=== PATIENT | female | born 1950 | race Caucasian/White ===

== ENCOUNTER 2016-05-15 23:57 | Emergency (ER) | payer OTHER, MEDICARE ==
[2016-05-16 00:22] VITALS: BP 119/72; PULSE 82; TEMP 97.2; BMI 18.5
--- NOTE | 2016-05-16 00:28 | PDOC ---
History of Present Illness - General Chief Complaint: Chest Pain Stated Complaint: CHEST PAIN Time Seen by Provider: 05/15/16 23:59 - History of Present Illness Initial Comments: 05/16/16 03:16 This 66-year-old woman with past history of pericarditis but no other significant past medical history presents with one day of anterior chest pain. Patient states that this pain is very similar to her previous pericarditis pain(worse sitting forward and lying flat, some pain with deep inspiration). She has taken [id number] nonsteroidal anti-inflammatory medications without significant relief. She denies all other associated symptoms of cough, fever/chills, shortness of breath, nausea/diaphoresis. Patient's previous episode of acute pericarditis occurred in 2005 and was thought to be of viral origin. She had more severe pain and required hospitalization. She had intermittent milder episodes after original illness until 2007. Since then, she has had no other chest pain . coronary artery disease risk factors:NO smoking/hypertension/DM/ hyperlipidemia. No family history of coronary artery disease Past History - Past Medical History Allergies/Adverse Reactions: Allergies Allergy/AdvReac Type Severity Reaction Status Date / Time No Known Allergies Allergy Unverified 05/16/16 00:19 Home Medications: Ambulatory Orders Indomethacin [Indocin -] 50 mg PO TID PRN #21 capsule 05/16/16 Pantoprazole Sodium [Protonix] 40 mg PO DAILY #20 tablet. 05/16/16 Cardiac Disorders: Yes (PERICARDITIS) - Psycho/Social/Smoking Cessation Hx Anxiety: No Suicidal Ideation: No Smoking History: Never smoked Review of Systems - Review of Systems Able to Perform ROS?: Yes Comments:: 12 point review of systems is negative except for what is noted in the history of present illness *Physical Exam - Vital Signs Last Vital Signs Temp Pulse Resp BP Pulse Ox 97.2 F L 82 16 119/72 97 05/16/16 00:20 05/16/16 00:20 05/16/16 00:20 05/16/16 00:20 05/16/16 00:20 - Physical Exam Comments: GENERAL:adult female alert and oriented X3, in no acute distress HEAD: Normal with no signs of trauma. EYES: PERRLA, EOMI, sclera anicteric, conjunctiva clear. ENT: Ears normal, nares patent, oropharynx clear without exudates. moist mucous membranes. NECK: Normal range of motion, supple without lymphadenopathy, JVD, or masses. LUNGS: Breath sounds equal, clear to auscultation bilaterally. No wheezes, and no crackles. HEART:Regular rate and rhythm, normal S1 and S2 without murmur, rub or gallop. ABDOMEN:.normal bowel sounds No guarding,tenderness or rebound.No masses No distention. EXTREMITIES: Normal range of motion, no edema. No clubbing or cyanosis. No erythema, or tenderness. NEUROLOGICAL: Cranial nerves II through XII grossly intact. Normal speech. No focal neurological deficits. MUSCULOSKELETAL: Back non-tender to palpation, no CVA tenderness SKIN: Warm, Dry, normal turgor, no rashes or lesions noted. Heart Score/ECG Review - History History: Slightly suspicious - Electrocardiogram EKG: Normal - Age Age: >/= 65 - Risk Factors Based on the list above the patient has:: No risk factors known - Troponin Troponin: </= normal limit - Score Heart Score - Total: 2 - ECG Intrepretation Rhythm: Regular Rhythm - Lowry Lowry: Normal - ECG Impressions Normal ECG: Yes ED Treatment Course - LABORATORY CBC & Chemistry Diagram: 05/16/16 00:45 05/16/16 00:35 - ADDITIONAL ORDERS Additional order review: Laboratory Results 05/16/16 05/16/16 05/16/16 00:45 00:35 00:35 INR 0.98 Sodium 143 Potassium 4.1 Chloride 106 Carbon Dioxide 28 Anion Gap 9 BUN 13 Creatinine 0.6 Creat Clearance w eGFR > 60 Random Glucose 104 Calcium 8.5 Total Bilirubin 0.3 AST 16 ALT 16 Alkaline Phosphatase 83 Creatine Kinase Cancelled Troponin I Cancelled Total Protein 6.8 Albumin 4.0 05/16/16 00:33 INR Sodium Potassium Chloride Carbon Dioxide Anion Gap BUN Creatinine Creat Clearance w eGFR Random Glucose Calcium Total Bilirubin AST ALT Alkaline Phosphatase Creatine Kinase 49 Troponin I < 0.02 Total Protein Albumin 05/16/16 00:45 RBC 4.39 MCV 86.3 MCHC 33.5 RDW 13.1 MPV 9.6 Neutrophils % 69.0 Lymphocytes % 22.7 Monocytes % 5.6 Eosinophils % 2.3 Basophils % 0.4 - Medications Given in the ED: ED Medications Discontinued Medications Generic Name Dose Route Start Last Admin Trade Name Freq PRN Reason Stop Dose Admin Ketorolac Tromethamine 30 mg 05/16/16 00:56 05/16/16 00:59 Toradol Injection - IVPUSH 05/16/16 00:57 30 mg ONCE ONE Administration Progress Note - Progress Note Progress Note: 66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 No risk factors for coronary artery disease. CBC/chemistry profile/ cardiac enzymes were sent 12 lead EKG: NSR at 73/min. Intervals, axis and waveforms are all normal Patient received Toradol 30 mg IV Laboratory results are all within normal limits. Patient states that she feels somewhat better after Toradol, however she still has some discomfort in her chest. No associated symptoms have developed. She strongly prefers to be discharged rather than stay for cardiology evaluation/ echocardiogram. Although the patient has no risk factors for coronary artery disease, EKG is normal and troponin is not elevated at this point, it is still possible that this pain is of mixed schema origin. This was thoroughly discussed with the patient. 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 The patient states that indomethacin 50 mg 3 times a day (taken along with Protonix 40 mg daily) was the only nonsteroidal anti-inflammatory that was effective for her during her previous episode of acute pericarditis. Prescriptions for these medications transmitted to her pharmacy Patient will return to the emergency room if she has persistent, severe pain or develops shortness of breath, diaphoresis, nausea *DC/Admit/Observation/Transfer Diagnosis at time of Disposition: Atypical chest pain - Discharge Dispostion Disposition: HOME Condition at time of disposition: Stable - Prescriptions Prescriptions: Indomethacin [Indocin -] 50 mg PO TID PRN #21 capsule PRN Reason: Pain Pantoprazole Sodium [Protonix] 40 mg PO DAILY #20 tablet.dr - Referrals Referrals: STAFF,NOT ON [Primary Care Provider] - - Patient Instructions Printed Discharge Instructions: DI for Atypical Chest Pain Additional Instructions: continue Indomethacin 50mg up to 3 times a day as needed Protonix 40mg while you are taking the indomethacin followup with your diesel powerplant mechanic helper within the next 48 hours return to the ER if you have worsening pain or develop difficulty breathing/ nausea
[2016-05-16] MEDS ORDERED: KETOROLAC TROMETHAMINE 30 MG/1 ML VIAL IVPUSH ONE (00:56)
[2016-05-16] MEDS ORDERED: KETOROLAC TROMETHAMINE 30 MG/1 ML VIAL ONE (00:56)
[2016-05-16 00:58] LABS: BASOPHIL 0.4 % (0-2.0); EOSINOPHIL 2.3 % (0-4.5); MCH 28.9 pg (25.7-33.7); MCHC 33.5 g/dl (32.0-36.0); MEAN CELL VOLUME 86.3 fl (80-96); MEAN PLT VOLUME 9.6 fl (7.5-11.1); PLATELET COUNT 165 K/MM3 (134-434); RDW 13.1 % (11.6-15.6); WHITE BLOOD COUNT 5.2 K/mm3 (4.0-10.0)
[2016-05-16 01:17] LABS: INR 0.98 (0.82-1.09); PROTHROMBIN TIME (PATIENT) 10.8 SEC (9.98-11.88)
[2016-05-16 01:27] LABS: BILIRUBIN,TOTAL 0.3 mg/dL (0.2-1.0); CALCIUM 8.5 mg/dL (8.5-10.1); CO2 28 mmol/L (21-32); CREATININE 0.6 mg/dL (0.55-1.02); GLUCOSE,RANDOM 104 mg/dL (74-106); SGOT/AST 16 U/L (15-37); SGPT/ALT 16 U/L (12-78); TOT PROT 6.8 g/dl (6.4-8.2)
[2016-05-16 01:30] LABS: TROPONIN I < 0.02 ng/ml (0.00-0.05)
[2016-05-16 01:35] LABS: ALK PHOS 83 U/L (45-117)
[2016-05-16 02:00] LABS: ANION GAP 9 (8-16)
--- NOTE | 2016-05-17 08:40 | EKG ---
Test Reason : Blood Pressure : / mmHG Vent. Rate : 073 BPM Atrial Rate : 073 BPM P-R Int : 158 ms QRS Dur : 076 ms QT Int : 398 ms P-R-T Axes : 062 066 063 degrees QTc Int : 438 ms NORMAL SINUS RHYTHM NORMAL ECG NO PREVIOUS ECGS AVAILABLE Confirmed by SUHA TRUONG MD ([id number]) on 05/17/2016 8:40:47 AM Referred By: MD HDZ Confirmed By:SUHA TRUONG MD
== END 2016-05-16 02:38 | disposition home or self-care (01) ==
LOC: FER 23:57
PROC: 3E0333Z Introduction of Anti-inflammatory into Peripheral Vein, Percutaneous Approach (ICD-10-PCS; principal; 2016-05-15)
DX: R07.89 Other chest pain (principal)
CPT/HCPCS: 36415; 80053; 82550; 84484; 85025; 85610; 93005; 99283-25

== ENCOUNTER 2017-09-30 15:38 | Emergency (ER) | payer OTHER, MEDICARE ==
[2017-09-30 15:53] VITALS: BP 128/72; PULSE 79; TEMP 98.9; BMI 18.3
--- NOTE | 2017-09-30 16:28 | PDOC ---
History of Present Illness - General History Source: Patient Exam Limitations: No Limitations - History of Present Illness Initial Comments: 09/30/17 17:09 The patient is a 67 year old female with a significant past medical history of pericarditis and chronic right sided neck pain who presents to the ED with right arm pain and numbness since earlier today. The patient states she was typing at work when she had a sudden onset of pain on her right arm. Patient states she had pain from her right shoulder radiating down her right arm that lasted for 10 minutes before residing. She states she also had a sudden onset of right arm numbness, where she was unable to lift or type with her right arm. Patient notes her right arm numbness lasted for several seconds before residing. Upon arrival to the ED, patient has no complaints. Denies headache. Denies shortness of breath or chest pain. Denies diaphoresis. <Ana Laura Denis - Last Filed: 09/30/17 18:10> - General History Source: Patient Exam Limitations: No Limitations <Marizol Clarke - Last Filed: 09/30/17 18:21> - General Chief Complaint: CVA/TIA Stated Complaint: RT ARM NUMBNESS PAIN Time Seen by Provider: 09/30/17 15:46 Past History <Ana Laura Denis - Last Filed: 09/30/17 18:10> - Past Medical History Cardiac Disorders: Yes (PERICARDITIS) COPD: No - Suicide/Smoking/Psychosocial Hx Smoking History: Never smoked Have you smoked in the past 12 months: No Information on smoking cessation initiated: No Hx Alcohol Use: No Drug/Substance Use Hx: No Substance Use Type: None <Marizol Clarke - Last Filed: 09/30/17 18:21> - Past Medical History Allergies/Adverse Reactions: Allergies Allergy/AdvReac Type Severity Reaction Status Date / Time No Known Allergies Allergy Verified 09/30/17 15:39 Home Medications: Ambulatory Orders NK [No Known Home Medication] 09/30/17 Review of Systems - Review of Systems Able to Perform ROS?: Yes Comments:: 09/30/17 17:10 CONSTITUTIONAL: Absent: fever, chills, diaphoresis, generalized weakness, malaise, loss of appetite HEENT: Absent: rhinorrhea, nasal congestion, throat pain, throat swelling, difficulty swallowing, mouth swelling, ear pain, eye pain, visual Changes CARDIOVASCULAR: Absent: chest pain, syncope, palpitations, irregular heart rate, lightheadedness , peripheral edema RESPIRATORY: Absent: cough, shortness of breath, dyspnea with exertion, orthopnea, wheezing, stridor, hemoptysis GASTROINTESTINAL: Absent: abdominal pain, abdominal distension, nausea, vomiting, diarrhea, constipation, melena, hematochezia GENITOURINARY: Absent: dysuria, frequency, urgency, hesitancy, hematuria, flank pain, genital pain MUSCULOSKELETAL: + right arm pain, right arm numbness SKIN: Absent: rash, itching, pallor HEMATOLOGIC/IMMUNOLOGIC: Absent: easy bleeding, easy bruising, lymphadenopathy, frequent infections ENDOCRINE: Absent: unexplained weight gain, unexplained weight loss, heat intolerance, cold intolerance NEUROLOGIC: Absent: headache, focal weakness or paresthesias, dizziness, unsteady gait, seizure, mental status changes, bladder or bowel incontinence PSYCHIATRIC: Absent: anxiety, depression, suicidal or homicidal ideation, hallucinations. All Other Systems: Reviewed and Negative <Ana Laura Denis - Last Filed: 09/30/17 18:10> *Physical Exam - Vital Signs Last Vital Signs Temp Pulse Resp BP Pulse Ox 98.9 F 79 20 128/72 99 09/30/17 15:38 09/30/17 15:38 09/30/17 15:38 09/30/17 15:38 09/30/17 15:38 - Physical Exam Comments: 09/30/17 17:10 GENERAL: Well developed, well nourished. Awake and alert. No acute distress. HEENT: Normocephalic, atraumatic. PERRLA, EOMI. No conjunctival pallor. Sclera are non- icteric. Moist mucous membranes. Oropharynx is clear. NECK: Supple. Full ROM. No JVD. Carotid pulses 2+ and symmetric, without bruits. No thyromegaly. No lymphadenopathy. CARDIOVASCULAR: Regular rate and rhythm. No murmurs, rubs, or gallops. Distal pulses are 2+ and symmetric. PULMONARY: No evidence of respiratory distress. Lungs clear to auscultation bilaterally. No wheezing, rales or rhonchi. ABDOMINAL: Soft. Non-tender. Non-distended. No rebound or guarding. No organomegaly. Normoactive bowel sounds. MUSCULOSKELETAL Normal range of motion at all joints. No bony deformities or tenderness. No CVA tenderness. EXTREMITIES: No cyanosis. No clubbing. No edema. No calf tenderness. SKIN: Warm and dry. Normal capillary refill. No rashes. No jaundice. NEUROLOGICAL: Alert, awake, appropriate. Cranial nerves 2-12 intact. No deficits to light touch and temperature in face, upper extremities and lower extremities. No motor deficits in the in face, upper extremities and lower extremities. Normoreflexic in the upper and lower extremities. Normal speech. Toes are down- going bilaterally. Gait is normal without ataxia. PSYCHIATRIC: Cooperative. Good eye contact. Appropriate mood and affect. <Ana Laura Denis - Last Filed: 09/30/17 18:10> - Vital Signs Last Vital Signs Temp Pulse Resp BP Pulse Ox 98.9 F 79 20 128/72 99 09/30/17 15:38 09/30/17 15:38 09/30/17 15:38 09/30/17 15:38 09/30/17 15:38 <Marizol Clarke - Last Filed: 09/30/17 18:21> TIA Risk Factors - ABCD Score Age: Age = or > 60 Blood Pressure: SBP < 140 and DBP < 90 Clinical Features of TIA: Uni wk w/wo speech impair Duration: TIA duration 10-59 min Diabetes: No Total ABCD2 Score (0-7):: 4 <Marizol Clarke - Last Filed: 09/30/17 18:21> Critical Care Time/MDM Note - Medical Decision Making Note: 09/30/17 18:[address] W/O CONTRAST Impression: No CT evidence of acute intracranial pathology Reported by: Krystian Medrano <Ana Laura Denis - Last Filed: 09/30/17 18:10> - Medical Decision Making Note: 09/30/17 17:34 Ms Anibal Cho is a 67-year-old female who is otherwise healthy presents emergency department with an episode of right upper extremity weakness or numbness. Patient states she was in her usual state of health, while at work. She is right-hand dominant and was typing at the computer. She noted that her right upper extremity felt tingling/numb. She noticed that the arm on to the right side of her body. She had no headache. No other neurological findings, no blurring of her vision, no slurring of her speech, no other weakness or numbness. She has no fevers or chills. She had a recent diagnosis of Lyme disease which was treated. Patient denies a history of diabetes, hypertension, hyperlipidemia. She is not obese. She does not use tobacco. Addition: She is awake, alert. Heart is regular rate and rhythm without murmur. Lungs are clear to auscultation bilaterally. No abdominal tenderness to palpation. Cranial nerves all intact. There is no facial asymmetry. Her speech is nonslurred. No visual changes. Her upper extremities are strong, able to hold both arms against gravity for 10 seconds. Sensation intact. Lower extremities are also strong, able to hold both lower extremities against gravity for 5 seconds each. No dysmetria. No dysdiadochokinesis. No sensory deficits. Differential diagnosis includes but is not limited to: Cervical radiculopathy, TIA, intracranial mass, cranial hemorrhage Will do: Labs - eval for electrolyte abnormality EKG - eval for afib CT head - Eval for obvious mass, bleed, cva Patient advised and I have had a long conversation regarding the findings of a TIA on a CT. In the possibility that this was a TIA. Patient at this point is not convinced of this. Is willing to do workup but not willing to stay in the hospital overnight. Case reviewed with Dr. Palacio He agrees this patient is very low risk and Will Be Discharged Home and Follow- Up in His Office on Tuesday for a 2 or 2:30 Appointment. EKG: Rate of 60 bpm, axis is normal, intervals are normal, no ST elevations or depressions. 09/30/17 17:39 Laboratory Tests 09/30/17 09/30/17 09/30/17 16:57 16:57 16:57 WBC 3.5 L Hgb 13.0 Hct 38.0 Plt Count 185 Alkaline Phosphatase 75 Troponin I < 0.03 ABCD2 score - 3(or 4) 09/30/17 18:[address]: No ICH, no mass, nml attenuation Will discharge to home Clinical impression: right arm numbness, initial presentation <Marizol Clarke - Last Filed: 09/30/17 18:21> Discharge Disposition <Ana Laura Denis - Last Filed: 09/30/17 18:10> - Discharge Dispostion Decision to Admit order: No <Marizol Clarke - Last Filed: 09/30/17 18:21> - Diagnosis Right arm numbness - Discharge Dispostion Disposition: HOME Condition at time of disposition: Stable - Referrals Referrals: Víctor Maza MD [Staff Physician] - - Patient Instructions Printed Discharge Instructions: DI for Numbness/tingling Additional Instructions: Thank you for coming into the emergency department today. Please be sure to follow up with her primary care physician within one week. I discussed her case with a neurologist who is willing to see you in the office on October 03 between 2 and 2:30. Please call his office at 9 in the morning to confirm this. If he noticed any new symptoms, you must return to emergency department immediately for reassessment. If you have any other concerns or complaints please return to emergency department. - Post Discharge Activity Work/School Note: Back to Work
[2017-09-30 17:06] LABS: BASO % 0.5 % (0-2.0); EOS % 0.6 % (0-4.5); LYMPH % 40.3 % (8-40); MCHC 34.2 g/dl (32.0-36.0); MEAN CELL VOLUME 87.7 fl (80-96); MEAN PLT VOLUME 8.9 fl (7.5-11.1); NEUT % 52.6 % (42.8-82.8); PLATELET COUNT 185 K/MM3 (134-434); RBC 4.33 M/mm3 (3.60-5.2); RDW 12.8 % (11.6-15.6); WHITE BLOOD COUNT 3.5 K/mm3 (4.0-10.8)
[2017-09-30 17:21] LABS: ALBUMIN 4.3 g/dl (3.5-5.0); ALK PHOS 75 U/L (32-92); ANION GAP 3 (8-16); BILIRUBIN,TOTAL 0.6 mg/dl (0.2-1.0); BLOOD UREA NITROGEN 15 mg/dl (7-18); CALCIUM 9.2 mg/dl (8.4-10.2); CHLORIDE 102 mmol/L (98-107); CO2 31 mmol/L (22-28); CREATININE 0.6 mg/dl (0.6-1.3); GLUCOSE,RANDOM 96 mg/dl (74-106); POTASSIUM 4.2 mmol/L (3.5-5.1); SGOT/AST 29 U/L (10-42); SGPT/ALT 20 U/L (10-40); SODIUM 136 mmol/L (136-145); TOT PROT 6.6 g/dl (6.4-8.3)
--- NOTE | 2017-10-02 10:16 | EKG ---
Test Reason : Blood Pressure : / mmHG Vent. Rate : 068 BPM Atrial Rate : 068 BPM P-R Int : 178 ms QRS Dur : 072 ms QT Int : 400 ms P-R-T Axes : 054 073 064 degrees QTc Int : 425 ms NORMAL SINUS RHYTHM NORMAL ECG WHEN COMPARED WITH ECG OF 16-MAY-2016 00:15, NO SIGNIFICANT CHANGE WAS FOUND Confirmed by CAITLIN JONES MD ([id number]) on 10/02/2017 10:16:27 AM Referred By: MD ESCAMILLA Confirmed By:CAITLIN JONES MD
== END 2017-09-30 18:28 | disposition home or self-care (01) ==
LOC: FER 15:38
DX: R20.0 Anesthesia of skin (principal); G89.29 Other chronic pain; I31.9 Disease of pericardium, unspecified
CPT/HCPCS: 36415; 70450-TC; 80053; 84484; 85025; 93005; 99284-25

== ENCOUNTER 2018-05-17 16:42 | Emergency (ER) | payer OTHER, MEDICARE ==
[2018-05-17 16:51] VITALS: BP 115/74; PULSE 79; TEMP 97.9; BMI 18.3
[2018-05-17] MEDS ORDERED: ASPIRIN 81 MG CHEWABLE TABLETS PO ONE (17:11)
--- NOTE | 2018-05-17 17:14 | PDOC ---
History of Present Illness <Valerio Guy - Last Filed: 05/17/18 18:07> - General History Source: Patient Exam Limitations: No Limitations - History of Present Illness Initial Comments: 05/17/18 17:08 Patient is a 68F with history of viral pericarditis here today complaining of chest pain that onset last night. She states that she feels a pinching pain along the left side of her chest without radiation. Endorses cough, denies shortness of breath. Denies fevers, chills, nausea, vomiting. Denies recent travel, leg swelling, history of blood clots. No recent surgery. Brother had heart attack in 60s. 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 <Ignacio Casarez - Last Filed: 05/17/18 19:04> - General Chief Complaint: Chest Pain Stated Complaint: CHEST PAIN Time Seen by Provider: 05/17/18 16:44 Past History <Valerio Guy - Last Filed: 05/17/18 18:07> - Past Medical History Cardiac Disorders: Yes (PERICARDITIS) COPD: No - Suicide/Smoking/Psychosocial Hx Smoking History: Never smoked Have you smoked in the past 12 months: No Hx Alcohol Use: No Drug/Substance Use Hx: No Substance Use Type: None <Ignacio Casarez - Last Filed: 05/17/18 19:04> - Past Medical History Allergies/Adverse Reactions: Allergies Allergy/AdvReac Type Severity Reaction Status Date / Time No Known Allergies Allergy Verified 05/17/18 16:43 Home Medications: Ambulatory Orders NK [No Known Home Medication] 09/30/17 Review of Systems - Review of Systems Able to Perform ROS?: Yes Comments:: 05/17/18 17:10 GENERAL/CONSTITUTIONAL: No fever or chills. No weakness. HEAD, EYES, EARS, NOSE AND THROAT: No change in vision. No ear pain or discharge. No sore throat. CARDIOVASCULAR: +chest pain no shortness of breath RESPIRATORY: +cough, no wheezing, or hemoptysis. GASTROINTESTINAL: No nausea, vomiting, diarrhea or constipation. GENITOURINARY: No dysuria, frequency, or change in urination. MUSCULOSKELETAL: No joint or muscle swelling or pain. No neck or back pain. SKIN: No rash NEUROLOGIC: No headache, vertigo, loss of consciousness, or change in strength/ sensation. HEMATOLOGIC/LYMPHATIC: No anemia, easy bleeding, or history of blood clots. ALLERGIC/IMMUNOLOGIC: No hives or skin allergy. <Ignacio Casarez - Last Filed: 05/17/18 19:04> *Physical Exam - Vital Signs Last Vital Signs Temp Pulse Resp BP Pulse Ox 97.9 F 79 18 115/74 100 05/17/18 16:42 05/17/18 16:42 05/17/18 16:42 05/17/18 16:42 05/17/18 16:42 <Valerio Guy - Last Filed: 05/17/18 18:07> - Vital Signs Last Vital Signs Temp Pulse Resp BP Pulse Ox 97.9 F 79 18 115/74 100 05/17/18 16:42 05/17/18 16:42 05/17/18 16:42 05/17/18 16:42 05/17/18 16:42 - Physical Exam Comments: 05/17/18 17:11 GENERAL: Awake, alert, and fully oriented, in no acute distress HEAD: No signs of trauma, normocephalic, atraumatic EYES: PERRLA, EOMI, sclera anicteric, conjunctiva clear ENT: Auricles normal inspection, hearing grossly normal, nares patent, oropharynx clear without exudates. Moist mucosa NECK: Normal ROM, supple, no lymphadenopathy, JVD, or masses LUNGS: No distress, speaks full sentences, clear to auscultation bilaterally HEART: Regular rate and rhythm, normal S1 and S2, no murmurs, rubs or gallops, peripheral pulses normal and equal bilaterally. ABDOMEN: Soft, nontender, normoactive bowel sounds. No guarding, no rebound. No masses EXTREMITIES: Normal inspection, Normal range of motion, no edema. No clubbing or cyanosis. NEUROLOGICAL: Cranial nerves II through XII grossly intact. Normal speech, normal gait, no focal sensorimotor deficits SKIN: Warm, Dry, normal turgor, no rashes or lesions noted. <Ignacio Casarez - Last Filed: 05/17/18 19:04> Moderate Sedation - Procedure Monitoring Vital Signs: Procedure Monitoring Vital Signs Temperature 97.9 F 05/17/18 16:42 Pulse Rate 79 05/17/18 16:42 Respiratory Rate 18 05/17/18 16:42 Blood Pressure 115/74 05/17/18 16:42 O2 Sat by Pulse Oximetry (%) 100 05/17/18 16:42 <Valerio Guy - Last Filed: 05/17/18 18:07> - Procedure Monitoring Vital Signs: Procedure Monitoring Vital Signs Temperature 97.9 F 05/17/18 16:42 Pulse Rate 79 05/17/18 16:42 Respiratory Rate 18 05/17/18 16:42 Blood Pressure 115/74 05/17/18 16:42 O2 Sat by Pulse Oximetry (%) 100 05/17/18 16:42 <Ignacio Casarez - Last Filed: 05/17/18 19:04> ED Treatment Course - LABORATORY CBC & Chemistry Diagram: 05/17/18 17:22 05/17/18 17:22 - ADDITIONAL ORDERS Additional order review: Laboratory Results 05/17/18 05/17/18 05/17/18 17:22 17:22 17:21 PT with INR 11.2 INR 1.00 Sodium 138 Potassium 3.8 Chloride 100 Carbon Dioxide 29 Anion Gap 9 BUN 16 Creatinine 0.6 Creat Clearance w eGFR > 60 Random Glucose 75 Calcium 9.5 Magnesium 2.2 Total Bilirubin 0.8 AST 26 ALT 17 Alkaline Phosphatase 89 Creatine Kinase 59 Troponin I Total Protein 7.0 Albumin 4.6 05/17/18 17:21 PT with INR INR Sodium Potassium Chloride Carbon Dioxide Anion Gap BUN Creatinine Creat Clearance w eGFR Random Glucose Calcium Magnesium Total Bilirubin AST ALT Alkaline Phosphatase Creatine Kinase Troponin I < 0.03 Total Protein Albumin 05/17/18 17:22 RBC 4.50 MCV 89.2 MCHC 33.7 RDW 12.5 MPV 9.8 Neutrophils % 61.3 Lymphocytes % 30.3 Monocytes % 7.4 Eosinophils % 0.4 Basophils % 0.6 - Medications Given in the ED: ED Medications Discontinued Medications Generic Name Dose Route Start Last Admin Trade Name Freq PRN Reason Stop Dose Admin Aspirin 162 mg 05/17/18 17:11 05/17/18 17:21 Asa - PO 05/17/18 17:12 162 mg ONCE ONE Administration <Valerio Guy - Last Filed: 05/17/18 18:07> - LABORATORY CBC & Chemistry Diagram: 05/17/18 17:22 05/17/18 17:22 <Ignacio Casarez - Last Filed: 05/17/18 19:04> Medical Decision Making - Medical Decision Making 05/17/18 17:11 Patient is a 68F with history of viral pericarditis here today complaining of chest pain. Vitals normal and stable. EKG shows NSR, no st elevation/ depressions. Normal axis. Normal intervals. No significant t wave abnormality. Low risk for ACS. PE, dissection considered, but do not believe workup is necessary at this time. 05/17/18 19:03 Trop neg, cbc, cmp normal. D/c by Dr Guy. <Ignacio Casarez - Last Filed: 05/17/18 19:04> *DC/Admit/Observation/Transfer - Discharge Dispostion Decision to Admit order: No <Valerio Guy - Last Filed: 05/17/18 18:07> <Ignacio Casarez - Last Filed: 05/17/18 19:04> Diagnosis at time of Disposition: Atypical chest pain - Discharge Dispostion Disposition: HOME Condition at time of disposition: Stable - Patient Instructions Printed Discharge Instructions: DI for Atypical Chest Pain, DI for Costochondritis Additional Instructions: Return to the ER immediately if pain worsens or other symptoms develop. Otherwise follow-up with your doctor within 2-3 days. And anti-inflammatory medication such as ibuprofen or naproxen may help with the pain is persistent. - Post Discharge Activity Forms/Work/School Notes: Back to Work
[2018-05-17] MEDS ORDERED: ASPIRIN 81 MG CHEWABLE TABLETS ONE (17:16)
--- NOTE | 2018-05-17 17:23 | PDOC ---
Attending Attestation - Resident Resident Name: Ignacio Casarez - ED Attending Attestation I have performed the following: I have examined & evaluated the patient, The case was reviewed & discussed with the resident, I agree w/resident's findings & plan, Exceptions are as noted - HPI HPI: 05/17/18 17:24 Patient complains of a "stitch" in her lower left chest since last night. This discomfort is constant, but mild, not associated with exertion or other activity. Denies trauma or activity that could've strained her chest. No associated symptoms such as nausea, diaphoresis, shortness of breath, or radiation of the pain. Patient is a healthy female with no risk factors including diabetes, high blood pressure, smoking, or family history. Her only serious illnesses or was an episode of pericarditis greater than 10 years ago which resolved spontaneously. She consulted a cartridge gauger at that time. She has had no recent URI symptoms or cough, shortness of breath or leg swelling. 05/17/18 17:27 - Physicial Exam PE: 05/17/18 17:26 Physical exam shows normal vital signs and an entirely normal physical exam with a regular cardiac rate of 77/m and a normal EKG. - Medical Decision Making 05/17/18 17:27 Assessment: Atypical chest pain, most likely musculoskeletal. Plan: EKG and cardiac enzymes, further evaluation depending on results, follow- up as directed. 05/17/18 18:44 EKG and cardiac enzymes are normal. No sign or symptoms of pericarditis. Patient 's pain is most consistent with musculoskeletal origin. Reassure, but follow-up ER immediately if pain worsens or additional symptoms develop. Otherwise she will make an appointment with her cartridge gauger, with whom she maintains contact as a result of her pericarditis.
[2018-05-17 17:34] LABS: BASO % 0.6 % (0-2.0); EOS % 0.4 % (0-4.5); HEMATOCRIT 40.1 % (32.4-45.2); HEMOGLOBIN 13.5 GM/dl (10.7-15.3); LYMPH % 30.3 % (8-40); MCH 30.1 pg (25.7-33.7); MCHC 33.7 g/dl (32.0-36.0); MEAN CELL VOLUME 89.2 fl (80-96); MEAN PLT VOLUME 9.8 fl (7.5-11.1); MONO % 7.4 % (3.8-10.2); NEUT % 61.3 % (42.8-82.8); PLATELET COUNT 184 K/MM3 (134-434); RDW 12.5 % (11.6-15.6); WHITE BLOOD COUNT 3.9 K/mm3 (4.0-10.8)
[2018-05-17 17:44] LABS: PROTHROMBIN TIME (PATIENT) 11.2 SEC (10.2-13.0)
[2018-05-17 17:49] LABS: ALBUMIN 4.6 g/dl (3.4-5.0); ALK PHOS 89 U/L (45-117); ANION GAP 9 MMOL/L (8-16); BILIRUBIN,TOTAL 0.8 mg/dl (0.2-1); BLOOD UREA NITROGEN 16 mg/dl (7-18); CALCIUM 9.5 mg/dl (8.5-10); CHLORIDE 100 mmol/L (98-107); CO2 29 mmol/L (21-32); CREATININE 0.6 mg/dl (0.55-1.3); GLUCOSE,RANDOM 75 mg/dl (74-106); MAGNESIUM 2.2 mg/dL (1.8-2.4); POTASSIUM 3.8 mmol/L (3.5-5.1); SGOT/AST 26 U/L (15-37); SGPT/ALT 17 U/L (13-61); SODIUM 138 mmol/L (136-145)
--- NOTE | 2018-05-18 12:00 | EKG ---
Test Reason : Blood Pressure : / mmHG Vent. Rate : 077 BPM Atrial Rate : 077 BPM P-R Int : 162 ms QRS Dur : 078 ms QT Int : 384 ms P-R-T Axes : 063 074 070 degrees QTc Int : 434 ms NORMAL SINUS RHYTHM NORMAL ECG WHEN COMPARED WITH ECG OF 30-SEP-2017 16:47, NO SIGNIFICANT CHANGE WAS FOUND Confirmed by CAITLIN JONES MD ([id number]) on 05/18/2018 11:59:52 AM Referred By: MD APONTE Confirmed By:CAITLIN JONES MD
== END 2018-05-17 18:14 | disposition home or self-care (01) ==
LOC: FER 16:42
DX: R07.89 Other chest pain (principal)
CPT/HCPCS: 36415; 80053; 82550; 83735; 84484; 85025; 85610; 93005; 99283-25